=== PATIENT | male | born 1950 | race African-American/Black ===

== ENCOUNTER 2017-07-23 10:57 | Emergency (ER) | payer MEDICARE ==
[~2017-07-23] VITALS: Ht 177.8 cm; Wt 75.0 kg
[2017-07-23] MEDS ORDERED: IBUPROFEN 800MG TABLET PO ONE (14:00)
[2017-07-23 14:15] VITALS: BP 146/82
== END 2017-07-23 14:39 | disposition home or self-care (01) ==
LOC: ER 11:14
DX: S43.102A Unspecified dislocation of left acromioclavicular joint, initial encounter (principal); E11.9 Type 2 diabetes mellitus without complications; W19.XXXA Unspecified fall, initial encounter; Y93.89 Activity, other specified; Y92.89 Other specified places as the place of occurrence of the external cause; Y99.8 Other external cause status
CPT/HCPCS: 73000; 73030; 99284; A4565

== ENCOUNTER 2023-08-29 22:46 | Emergency (ER) | payer MEDICARE ==
[~2023-08-29] VITALS: Ht 172.7 cm; Wt 78.0 kg
[2023-08-29 22:53] VITALS: TEMP 98.2; O2SAT 99
[2023-08-29 23:53] LABS: BASOPHILS % 0.6 % (0.0-2.0); EOSINOPHILS % 0.9 % (0.0-5.0); HEMATOCRIT. 45.1 % (42.0-52.0); HEMOGLOBIN. 14.7 g/dL (14.0-18.0); LYMPHOCYTES % 24.1 % (20.0-50.0); MEAN CORPUSCULAR HEMOGLOBIN 28.3 pg (28.0-32.0); MEAN CORPUSCULAR HGB CONC 32.6 g/dL (31.0-37.0); MEAN CORPUSCULAR VOLUME 86.7 fL (80.0-94.0); MEAN PLATELET VOLUME 7.8 fl (7.4-10.4); MONOCYTES % 9.4 % (2.0-8.0); PLATELET 192 x1000/uL (130-400); RED CELL DISTRIBUTION WIDTH 14.1 % (11.6-14.6); WHITE BLOOD COUNT 5.5 x1000/uL (4.5-11.0)
[2023-08-30 00:02] LABS: AMMONIA 24 uMol/L (<32)
[2023-08-30 00:06] LABS: ACETAMINOPHEN < 2 ug/mL (10-30); ALANINE AMINOTRANSFERASE 15 IU/L (10-49); ALBUMIN 3.9 g/dL (3.2-4.8); ASPARTATE AMINOTRANSFERASE 20 IU/L (<34); BILIRUBIN TOTAL 0.4 mg/dL (0.1-1.0); CARBON DIOXIDE 30 mEq/L (21-32); CHLORIDE 108 mEq/L (98-107); CREATINE KINASE 284 IU/L (46-171); CREATININE 0.8 mg/dL (0.6-1.3); ETHANOL BLOOD < 10 mg/dL (<10); GLUCOSE 115 mg/dL (70-105); POTASSIUM 3.3 mEq/L (3.5-5.1); PROTEIN TOTAL 7.1 g/dL (6.0-8.3); SODIUM 142 mEq/L (136-145); THYROID STIMULATING HORMONE 0.62 uIU/mL (0.55-4.78); TROPONIN I HIGH SENSITIVITY 4 ng/L (3.0-53); UREA NITROGEN BLOOD 9 mg/dL (9-23)
[2023-08-30 02:17] LABS: CLARITY URINE CLEAR (CLEAR); COLOR URINE YELLOW (YELLOW); GLUCOSE URINE NEGATIVE (NEGATIVE); KETONES URINE NEGATIVE (NEGATIVE); LEUKOCYTE ESTERASE URINE NEGATIVE (NEGATIVE); NITRITE URINE NEGATIVE (NEGATIVE); OCCULT BLOOD URINE NEGATIVE (NEGATIVE); PROTEIN URINE NEGATIVE (NEGATIVE)
[2023-08-30 02:47] LABS: *AMPHETAMINES SCREEN URINE NEGATIVE (NEGATIVE); *BARBITURATES SCREEN URINE NEGATIVE (NEGATIVE); *BENZODIAZEPINES SCREEN URINE PRESUMPTIVE POSITIVE (NEGATIVE); *COCAINE SCREEN URINE NEGATIVE (NEGATIVE); CANNABINOID URINE SCREEN NEGATIVE (NEGATIVE); ECSTASY MDMA SCREEN URINE NEGATIVE (NEGATIVE); METHADONE URINE SCREEN Neg (NEGATIVE); OPIATES URINE SCREEN NEGATIVE (NEGATIVE); PHENCYCLIDINE URINE SCREEN NEGATIVE (NEGATIVE)
[2023-08-30 06:10] VITALS: BP 129/60; PULSE 66; RESP 12
== END 2023-08-30 06:48 | disposition home or self-care (01) ==
LOC: ER 22:46
DX: R41.82 Altered mental status, unspecified (principal); E16.2 Hypoglycemia, unspecified; E11.9 Type 2 diabetes mellitus without complications
CPT/HCPCS: 36415; 71045; 80053; 80305; 80307; 80320; 80329; 81003; 82140; 82550; 82962; 84443; 84484; 85025; 93005; 99285; G0480